=== PATIENT | male | born 1980 | race Caucasian/White ===

== ENCOUNTER 2017-11-26 10:17 | Observation (INO) | payer OTHER ==
[2017-11-26 10:20] VITALS: BMI 25.6
[2017-11-26] MEDS ORDERED: Iohexol 240 (50 ml) PO ONE (11:42)
[2017-11-26] MEDS ORDERED: HYDROmorphone 1 mg/ml ISec IVP STA (11:46)
[2017-11-26] MEDS ORDERED: Sodium Chloride 0.9% 1,000 ML IV STA (11:46)
--- NOTE | 2017-11-26 12:07 | ED PDOC ---
HPI: General Adult Time Seen by Provider: 11/26/17 10:49 Chief Complaint (Nursing): Abdominal Pain History Per: Patient Additional Complaint(s): Pt. states he has had RLQ abdominal pain since yesterday associated with multiple episodes of non-bloody vomiting. Pain has been constant. Also reports feeling febrile. Denies diarrhea, melena, hematemesis, hematochezia, BRBPR. Past Medical History Reviewed: Historical Data, Nursing Documentation, Vital Signs Vital Signs: Last Vital Signs Temp 98.2 F 11/26/17 16:30 Pulse 84 11/26/17 16:30 Resp 20 11/26/17 16:30 BP 137/91 H 11/26/17 16:30 Pulse Ox 97 11/26/17 15:32 - Family History Family History: States: No Known Family Hx - Immunization History Hx Tetanus Toxoid Vaccination: No Hx Influenza Vaccination: No Hx Pneumococcal Vaccination: No - Home Medications Home Medications: Ambulatory Orders Medication Instructions Recorded Cyanocobalamin [Vitamin B12 1000 1 tab PO DAILY 11/26/17 mcg Tab] - Allergies Allergies/Adverse Reactions: Allergies Allergy/AdvReac Type Severity Reaction Status Date / Time No Known Allergies Allergy Verified 11/26/17 15:34 Review of Systems ROS Statement: Except As Marked, All Systems Reviewed And Found Negative Constitutional: Positive for: Fever Gastrointestinal: Positive for: Nausea, Vomiting, Abdominal Pain Physical Exam - Physical Exam Appears: Positive for: Well, Non-toxic, No Acute Distress Skin: Positive for: Normal Color, Warm. Negative for: Rash Eye Exam: Positive for: Normal appearance Cardiovascular/Chest: Positive for: Regular Rate, Rhythm Respiratory: Positive for: CNT, Normal Breath Sounds Gastrointestinal/Abdominal: Positive for: Normal Exam, Soft, Tenderness ( moderate RLQ tenderness) Back: Positive for: Normal Inspection. Negative for: L CVA Tenderness, R CVA Tenderness Neurologic/Psych: Positive for: Alert, Oriented - Laboratory Results Result Diagrams: 11/26/17 12:12 11/26/17 12:12 - ECG O2 Sat by Pulse Oximetry: 97 - Progress ED Course And Treament: Labs ordered. CT abd/pelvis w/ IV and PO contrast ordered. Dilaudid 1mg IV, zofran 4mg IV ordered. Pt. NPO. 1355 On re-evaluation, pt. sleeping comfortably. Easily arousable. Reports good analgesia. 1439 CT abd/pelvis w/ PO and IV contrast: acute appendicitis 1450 Call placed to assembler surgical garment. 1455 Case d/w Dr. Weiss, assembler surgical garment, and arrangements made for admission. Case d/w Dr. Umanzor and arrangements made for admission. Disposition - Clinical Impression Clinical Impression: Acute appendicitis - Patient ED Disposition Is Patient to be Admitted: Yes - Disposition Disposition Time: 14:55 Condition: STABLE - Pt Status Changed To: Hospital Disposition Of: Observation
[2017-11-26] MEDS ORDERED: Iohexol 240 (50 ml) ONE (12:11)
[2017-11-26 12:19] LABS: BASO # 0.1 K/uL (0.0-0.2); BASO % 0.6 % (0.0-2.0); EOS # 0.2 K/uL (0.0-0.7); EOS % 2.4 % (0.0-4.0); HEMOGLOBIN 15.2 g/dL (12.0-18.0); LYMPH % 20.3 % (20.0-40.0); MEAN CELL VOLUME 89.1 fl (80.0-94.0); MEAN CORPUSCULAR HEMOGLOBIN 31.3 pg (27.0-31.0); MEAN CORPUSCULAR HGB CONC 35.2 g/dL (33.0-37.0); MEAN PLATELET VOLUME 7.5 fl (7.2-11.7); MONO # 0.9 K/uL (0.0-0.8); MONO % 9.3 % (0.0-10.0); NEUT # 6.8 K/uL (1.8-7.0); NEUT % 67.4 % (50.0-75.0); NRBC % 0.1 % (0.0-0.0); RBC 4.84 Mil/uL (4.40-5.90); RED CELL DISTRIBUTION WIDTH 12.4 % (11.5-14.5); WHITE BLOOD COUNT 10.1 K/uL (4.8-10.8)
[2017-11-26 12:37] LABS: ALB/GLOB RATIO 1.1 (1.0-2.1); ALBUMIN 4.3 g/dL (3.5-5.0); ALT/SGPT 61 U/L (21-72); AST/SGOT 37 U/L (17-59); BLOOD UREA NITROGEN 10 mg/dl (9-20); CALCIUM 9.4 mg/dL (8.4-10.2); GFR AFRICAN-AMERICAN > 60; GFR NON-AFRICAN AMERICAN > 60
[2017-11-26 13:03] LABS: URINE BILIRUBIN NEGATIVE (NEGATIVE); URINE BLOOD NEGATIVE (NEGATIVE); URINE CLARITY SLIGHTY-CLOUDY (Clear); URINE COLOR YELLOW (YELLOW); URINE GLUCOSE (UA) NEG (Normal); URINE LEUKOCYTE ESTERASE NEG Leu/uL (Negative); URINE NITRATE NEGATIVE (NEGATIVE); URINE PROTEIN NEGATIVE (NEGATIVE)
[2017-11-26] MEDS ORDERED: Iohexol 300 100 ML IJ ONE (14:11)
[2017-11-26] MEDS ORDERED: Sodium Chloride 0.9% 50 ML IV ONE (14:11)
--- NOTE | 2017-11-26 14:45 | CT ---
PROCEDURE: CT Abdomen and Pelvis with contrast HISTORY: RLQ abdominal pain, vomiting COMPARISON: None. TECHNIQUE: Contrast dose: 95 cc Omnipaque 300 Radiation dose: Total exam DLP = 454.32 mGy-cm. This CT exam was performed using one or more of the following dose reduction techniques: Automated exposure control, adjustment of the mA and/or kV according to patient size, and/or use of iterative reconstruction technique. FINDINGS: LOWER THORAX: Dependent atelectasis at the lung bases. LIVER: Hepatic steatosis. No focal masses. No intrahepatic bile duct dilatation or perihepatic ascites. GALLBLADDER AND BILE DUCTS: Unremarkable. PANCREAS: Unremarkable. No gross lesion or ductal dilatation. SPLEEN: Unremarkable. ADRENALS: Unremarkable. No mass. KIDNEYS AND URETERS: Unremarkable. No hydronephrosis. No solid mass. VASCULATURE: Unremarkable. No aortic aneurysm. BOWEL: Diverticulosis without an acute inflammatory component or other associated pathologic process. APPENDIX: Acute appendicitis with right lower quadrant. Appendiceal inflammatory changes. No fluid collection, free air, loculated air identified. PERITONEUM: Unremarkable. No free fluid. No free air. LYMPH NODES: Unremarkable. No enlarged lymph nodes. BLADDER: Unremarkable. REPRODUCTIVE: Unremarkable. BONES: No acute fracture. OTHER FINDINGS: None. IMPRESSION: Acute appendicitis. No evidence of loculated air, free air, drainable collection. Communication of results: Study completed 14:25 I discussed findings with physician physical laboratory assistant at the time of this interpretation 14:39 2017.
[2017-11-26] MEDS ORDERED: Piperacillin/Tazobact 3.375 GM in Sodium Chloride 0.9% 100 ML IVPB STA (15:05)
[2017-11-26] MEDS ORDERED: Sodium Chloride 0.9% 1,000 ML IV SCH (15:15)
[2017-11-26] MEDS ORDERED: Piperacillin/Tazobact 3.375 gm Inj IVPB ONE (15:33)
[2017-11-26 16:11] LABS: VENOUS BLOOD GAS BASE EXCESS -0.4 mmol/L (0.0-2.0); VENOUS BLOOD GAS PCO2 42 mmHg (40-60); VENOUS BLOOD GAS PO2 53 mm/Hg (30-55); VENOUS BLOOD PH 7.38 (7.32-7.43)
--- NOTE | 2017-11-26 16:11 | CP.PCM.CON ---
History of Present Illness - History of Present Illness History of Present Illness: General surgery consult note for Dr. Ellie Weiss, PGY-1 Pt S & E at bedside. [place] speaking only, translation via [email or web address] 37M w/no sig PMH consulted for RLQ ab pain x 2 days. Pt reports onset of periumbilical abdominal pain 2 days prior to evaluation, with localization to RLQ. Pain is severe, sharp, constant, non radiating. Admits to poor appetite, emesis x 3 (nbnb, food stuff), nausea, fevers (subjective), chills, cramps of legs, numbness of Right foot. Denies constipation, diarrhea, chest pain, palpitations, SOB, weakness. Last meal- yesterday lunch PMH: Denies PSH: Left hand & left foot surgery All: NKDA SH: Admits to weekly ETOH use, averages 2 beers/hard liquor; hx of tobacco use ( quit 2010), denies drugs Review of Systems - Review of Systems All systems: reviewed and no additional remarkable complaints except - Constitutional Constitutional: Chills, Fever (subjective). absent: Increased Appetite, Weakness - EENT Nose/Mouth/Throat: absent: Sore Throat - Cardiovascular Cardiovascular: absent: Chest Pain - Respiratory Respiratory: absent: Cough - Gastrointestinal Gastrointestinal: Abdominal Pain, Nausea, Vomiting. absent: Change in Bowel Habits, Constipation, Diarrhea, Hematemesis - Genitourinary Genitourinary: absent: Change in Urinary Stream - Musculoskeletal Musculoskeletal: Numbness, Tingling. absent: Muscle Weakness - Integumentary Integumentary: absent: Rash - Neurological Neurological: absent: Weakness - Psychiatric Psychiatric: Change in Appetite (decreased) Past Patient History - Past Social History Smoking Status: Never Smoked - PSYCHIATRIC Hx Substance Use: No - SURGICAL HISTORY Hx Surgeries: No - ANESTHESIA Hx Anesthesia: No Meds Allergies/Adverse Reactions: Allergies Allergy/AdvReac Type Severity Reaction Status Date / Time No Known Allergies Allergy Verified 11/26/17 15:34 - Medications Medications: Current Medications Hydromorphone HCl (Dilaudid) 1 mg IVP Q4 PRN PRN Reason: Pain, severe (8-10) Hydromorphone HCl (Dilaudid) 0.5 mg IVP Q4H PRN PRN Reason: Pain, moderate (4-7) Sodium Chloride (Sodium Chloride 0.9%) 1,000 mls @ 100 mls/hr IV .Q10H KANG Ciprofloxacin (Cipro 400mg/200ml Dsw) 400 mg in 200 mls @ 200 mls/hr IVPB Q12 KANG PRN Reason: Protocol Metronidazole (Flagyl 500mg/100ml Ns) 100 mls @ 100 mls/hr IVPB Q12 KANG PRN Reason: Protocol Ondansetron HCl (Zofran Inj) 4 mg IVP Q6 PRN PRN Reason: Nausea/Vomiting Physical Exam - Constitutional Appears: Non-toxic, No Acute Distress - Head Exam Head Exam: ATRAUMATIC, NORMAL INSPECTION, NORMOCEPHALIC - Eye Exam Eye Exam: EOMI, Normal appearance - ENT Exam ENT Exam: Mucous Membranes Moist, Normal Exam - Neck Exam Neck exam: Positive for: Full Rom, Normal Inspection - Respiratory Exam Respiratory Exam: NORMAL BREATHING PATTERN - Cardiovascular Exam Cardiovascular Exam: REGULAR RHYTHM, +S1, +S2 - GI/Abdominal Exam GI & Abdominal Exam: Guarding, Tenderness (RLQ, + McBurney's, -Rovsings, +psoas) . absent: Distended, Firm - Extremities Exam Extremities exam: Positive for: normal inspection - Neurological Exam Neurological exam: Alert, CN II-XII Intact, Oriented x3 - Psychiatric Exam Psychiatric exam: Normal Affect, Normal Mood - Skin Skin Exam: Diaphoretic, Intact, Normal Color, Warm Results - Vital Signs Recent Vital Signs: Last Vital Signs Temp 98.2 F 11/26/17 10:21 Pulse 84 11/26/17 10:21 Resp 20 11/26/17 10:21 BP 137/91 H 11/26/17 10:21 Pulse Ox 97 11/26/17 15:32 - Labs Result Diagrams: 11/26/17 12:12 11/26/17 12:12 Labs: Laboratory Results - last 24 hr 11/26/17 11/26/17 11/26/17 12:12 12:12 12:15 WBC 10.1 RBC 4.84 Hgb 15.2 Hct 43.1 MCV 89.1 D MCH 31.3 H MCHC 35.2 RDW 12.4 Plt Count 202 MPV 7.5 Neut % (Auto) 67.4 Lymph % (Auto) 20.3 [place] % (Auto) 9.3 Eos % (Auto) 2.4 Baso % (Auto) 0.6 Neut # 6.8 Lymph # 2.0 [place] # 0.9 H Eos # 0.2 Baso # 0.1 Sodium 139 Potassium 3.5 L Chloride 98 Carbon Dioxide 27 Anion Gap 18 BUN 10 Creatinine 0.7 L Est GFR ( Amer) > 60 Est GFR (Non-Af Amer) > 60 Random Glucose 94 Calcium 9.4 Total Bilirubin 1.0 AST 37 ALT 61 Alkaline Phosphatase 101 Total Protein 8.3 H Albumin 4.3 Globulin 4.0 H Albumin/Globulin Ratio 1.1 Urine Color Yellow Urine Clarity Slighty-cloudy Urine pH 6.0 Ur Specific [place] 1.019 Urine Protein Negative Urine Glucose (UA) Neg Urine Ketones 20 Urine Blood Negative Urine Nitrate Negative Urine Bilirubin Negative Urine Urobilinogen 2.0 Ur Leukocyte Esterase Neg Urine RBC (Auto) 2 Urine Microscopic WBC 3 Assessment & Plan - Assessment and Plan (Free Text) Assessment: 37M with no sig PMH consulted for abdominal pain due to appendicitis Plan: Admit to medicine NPO IVF Abx Serial ab exam Consent in chart Plan for OR today DW attending Isela, PGY-1 - Date & Time Date: 11/26/17 Time: 16:11
[2017-11-26] MEDS ORDERED: Lidocaine 4% (Laryng-O-Jet) Kit MM ONE (16:36)
[2017-11-26] MEDS ORDERED: Propofol 10 mg/ml Inj (20 ML) ONE (16:36)
[2017-11-26] MEDS ORDERED: Rocuronium 10 mg/ml (5 ml) ONE (16:36)
[2017-11-26] MEDS ORDERED: Succinylcholine 200 mg/10 ml Inj IV ONE (16:36)
[2017-11-26] MEDS ORDERED: Dexamethasone 4 mg/1 ml ONE (16:38)
[2017-11-26] MEDS ORDERED: Lidocaine 1% Inj (20ml) ONE (16:55)
[2017-11-26] MEDS ORDERED: Bupivacaine 0.5% Inj(30mL) ONE (16:55)
[2017-11-26] MEDS ORDERED: Sodium Chloride 0.9% 1,000 ML IV ONE ×2 (17:28)
[2017-11-26] MEDS ORDERED: Midazolam 2 MG/2 ML VIAL ONE (17:31)
[2017-11-26] MEDS ORDERED: Neostigmine Methylsulfate 3mg/3ml Syringe IV ONE (17:50)
[2017-11-26] MEDS ORDERED: Lactated Ringer's 1,000 ML IV ONE ×2 (18:00→19:50)
[2017-11-26] MEDS ORDERED: Lactated Ringer's 1,000 ML IV SCH (18:45)
--- NOTE | 2017-11-26 18:48 | PCM.SURG1 ---
Surgeon's Initial Post Op Note - Surgeon's Notes Surgeon: Joey Bedoya MD Time Clerk: Liz Weiss PGY-1 Type of Anesthesia: General Endo Pre-Operative Diagnosis: Acute appendicitis Operative Findings: See op report Post-Operative Diagnosis: Acute appendicitis Operation Performed: Laparoscopic appendectomy Specimen/Specimens Removed: Appendix Estimated Blood Loss: EBL {In ML}: 5 Blood Products Given: N/A Drains Used: No Drains Post-Op Condition: Good Date of Surgery/Procedure: 11/26/17 Time of Surgery/Procedure: 18:48
[2017-11-26] MEDS ORDERED: Oxycodone/Acetaminophen 5/325 mg Tab PO PRN ×2 (18:49)
[2017-11-26] MEDS ORDERED: Ciprofloxacin 400mg/200ml D5W 400 MG/200 ML BAG IVPB SCH (21:00)
[2017-11-26] MEDS ORDERED: metroNIDAZOLE 500mg/100ml NS 100 ML IVPB SCH (21:00)
--- NOTE | 2017-11-26 22:39 | CP.PCM.HP ---
History of Present Illness - History of Present Illness History of Present Illness: This is a 37 year old male with no significant past medical history who presented to the ED with the complaint of right lower quadrant going on for 2 days. The patient reported intiially having generalized abdominal pain when then localized to the RLQ. Associated symptoms include decreased po intake, nonbilious nonbloody emesis x 3 yesterday associated with nausea, chills. Patient denies headache, chest pain, sob, weakness, constipation. In the ED, the patient had CT scan showing acute appendicitis. No fever or leukocytosis. The patient was taken to the OR today with Dr. Bedoya and had uncomplicated laparascopic appendectomy. Present on Admission - Present on Admission Any Indicators Present on Admission: No Review of Systems - Review of Systems Review of Systems: A 12 point review of systems was conducted and found to be negative other than what was dictated in HPI. Past Patient History - Past Medical History & Family History Past Medical History?: No - Past Social History Smoking Status: Never Smoked - CARDIAC Hx Cardiac Disorders: No - PULMONARY Hx Respiratory Disorders: No - NEUROLOGICAL Hx Neurological Disorder: No - HEENT Hx HEENT Problems: No - RENAL Hx Chronic Kidney Disease: No - ENDOCRINE/METABOLIC Hx Endocrine Disorders: No - HEMATOLOGICAL/ONCOLOGICAL Hx Blood Disorders: No - INTEGUMENTARY Hx Dermatological Problems: No - MUSCULOSKELETAL/RHEUMATOLOGICAL Hx Musculoskeletal Disorders: No - GENITOURINARY/GYNECOLOGICAL Hx Genitourinary Disorders: No - PSYCHIATRIC Hx Substance Use: No - SURGICAL HISTORY Hx Surgeries: No - ANESTHESIA Hx Anesthesia: No Meds Allergies/Adverse Reactions: Allergies Allergy/AdvReac Type Severity Reaction Status Date / Time No Known Allergies Allergy Verified 11/26/17 15:34 Physical Exam - Additional Findings Additional findings: Physical exam: Constitutional- cooperative, awake, alert Head- NCAT, PERRL Eye- PERRL, EOMI ENT- normal exam, MMM. Neck- normal inspection, supple, no JVD Respiratory- CTAB, no wheezes rales rhonchi Cardiovascular- RRR, +S1, +S2 no MRG GI/Abdominal- normal bowel sounds, soft, no mass, no hsm Skin- warm, dry Extremities Exam- normal capillary refill, normal inspection Neurological Exam- alert, awake, oriented Psych- normal mood, normal affect Results - Vital Signs Recent Vital Signs: Last Vital Signs Temp 98.4 F 11/26/17 20:29 Pulse 78 11/26/17 20:29 Resp 20 11/26/17 20:29 BP 123/75 11/26/17 20:29 Pulse Ox 95 11/26/17 20:29 - Labs Result Diagrams: 11/26/17 12:12 11/26/17 12:12 Labs: Laboratory Results - last 24 hr 11/26/17 11/26/17 11/26/17 12:12 12:12 12:15 WBC 10.1 RBC 4.84 Hgb 15.2 Hct 43.1 MCV 89.1 D MCH 31.3 H MCHC 35.2 RDW 12.4 Plt Count 202 MPV 7.5 Neut % (Auto) 67.4 Lymph % (Auto) 20.3 [place] % (Auto) 9.3 Eos % (Auto) 2.4 Baso % (Auto) 0.6 Neut # 6.8 Lymph # 2.0 [place] # 0.9 H Eos # 0.2 Baso # 0.1 pO2 VBG pH VBG pCO2 VBG HCO3 VBG Total CO2 VBG O2 Sat (Calc) VBG Base Excess VBG Potassium Glucose Lactate FiO2 Sodium 139 Potassium 3.5 L Chloride 98 Carbon Dioxide 27 Anion Gap 18 BUN 10 Creatinine 0.7 L Est GFR ( Amer) > 60 Est GFR (Non-Af Amer) > 60 Random Glucose 94 Calcium 9.4 Total Bilirubin 1.0 AST 37 ALT 61 Alkaline Phosphatase 101 Total Protein 8.3 H Albumin 4.3 Globulin 4.0 H Albumin/Globulin Ratio 1.1 Venous Blood Potassium Urine Color Yellow Urine Clarity Slighty-cloudy Urine pH 6.0 Ur Specific [place] 1.019 Urine Protein Negative Urine Glucose (UA) Neg Urine Ketones 20 Urine Blood Negative Urine Nitrate Negative Urine Bilirubin Negative Urine Urobilinogen 2.0 Ur Leukocyte Esterase Neg Urine RBC (Auto) 2 Urine Microscopic WBC 3 11/26/17 16:00 WBC RBC Hgb Hct MCV MCH MCHC RDW Plt Count MPV Neut % (Auto) Lymph % (Auto) [place] % (Auto) Eos % (Auto) Baso % (Auto) Neut # Lymph # [place] # Eos # Baso # pO2 53 VBG pH 7.38 VBG pCO2 42 VBG HCO3 24.3 VBG Total CO2 26.1 VBG O2 Sat (Calc) 92.4 H VBG Base Excess -0.4 L VBG Potassium 3.6 Glucose 89 Lactate 0.9 FiO2 21.0 Sodium 134.0 Potassium Chloride 98.0 Carbon Dioxide Anion Gap BUN Creatinine Est GFR ( Amer) Est GFR (Non-Af Amer) Random Glucose Calcium Total Bilirubin AST ALT Alkaline Phosphatase Total Protein Albumin Globulin Albumin/Globulin Ratio Venous Blood Potassium 3.6 Urine Color Urine Clarity Urine pH Ur Specific [place] Urine Protein Urine Glucose (UA) Urine Ketones Urine Blood Urine Nitrate Urine Bilirubin Urine Urobilinogen Ur Leukocyte Esterase Urine RBC (Auto) Urine Microscopic WBC Assessment & Plan - Assessment and Plan (Free Text) Plan: Assessment 1) Acute appendicitis, s/p laparascopic appendectomy POD #0 - Place on med/surg obs s/p surgery - Dr. Bedoya on consultation - Check CBC in AM - Zofran 4 mg ivp q 6 hours - Cipro/Flagyl 2) DVT prophylaxis - SCDs Dispo: Likely discharge in AM
[2017-11-27 00:20] VITALS: RESP 18; O2SAT 97
[2017-11-27 08:10] LABS: HEMOGLOBIN 13.4 g/dL (12.0-18.0); MEAN CELL VOLUME 89.5 fl (80.0-94.0); MEAN CORPUSCULAR HEMOGLOBIN 31.7 pg (27.0-31.0); MEAN CORPUSCULAR HGB CONC 35.4 g/dL (33.0-37.0); RBC 4.24 Mil/uL (4.40-5.90); RED CELL DISTRIBUTION WIDTH 12.1 % (11.5-14.5); WHITE BLOOD COUNT 7.6 K/uL (4.8-10.8)
--- NOTE | 2017-11-27 08:21 | CP.PCM.DIS ---
Provider - Provider Date of Admission: 11/26/17 15:04 Attending physician: Tyler Umanzor DO Primary care physician: None Consults: surgery consult Time Spent in preparation of Discharge (in minutes): 15 Hospital Course - Lab Results Lab Results: Most Recent Lab Values WBC 7.6 K/uL (4.8-10.8) 11/27/17 07:30 RBC 4.24 Mil/uL (4.40-5.90) L 11/27/17 07:30 Hgb 13.4 g/dL (12.0-18.0) 11/27/17 07:30 Hct 37.9 % (35.0-51.0) 11/27/17 07:30 MCV 89.5 fl (80.0-94.0) 11/27/17 07:30 MCH 31.7 pg (27.0-31.0) H 11/27/17 07:30 MCHC 35.4 g/dL (33.0-37.0) 11/27/17 07:30 RDW 12.1 % (11.5-14.5) 11/27/17 07:30 Plt Count 203 K/uL (130-400) 11/27/17 07:30 MPV 7.5 fl (7.2-11.7) 11/26/17 12:12 Neut % (Auto) 67.4 % (50.0-75.0) 11/26/17 12:12 Lymph % (Auto) 20.3 % (20.0-40.0) 11/26/17 12:12 [place] % (Auto) 9.3 % (0.0-10.0) 11/26/17 12:12 Eos % (Auto) 2.4 % (0.0-4.0) 11/26/17 12:12 Baso % (Auto) 0.6 % (0.0-2.0) 11/26/17 12:12 Neut # 6.8 K/uL (1.8-7.0) 11/26/17 12:12 Lymph # 2.0 K/uL (1.0-4.3) 11/26/17 12:12 [place] # 0.9 K/uL (0.0-0.8) H 11/26/17 12:12 Eos # 0.2 K/uL (0.0-0.7) 11/26/17 12:12 Baso # 0.1 K/uL (0.0-0.2) 11/26/17 12:12 pO2 53 mm/Hg (30-55) 11/26/17 16:00 VBG pH 7.38 (7.32-7.43) 11/26/17 16:00 VBG pCO2 42 mmHg (40-60) 11/26/17 16:00 VBG HCO3 24.3 mmol/L 11/26/17 16:00 VBG Total CO2 26.1 mmol/L (22-28) 11/26/17 16:00 VBG O2 Sat (Calc) 92.4 % (40-65) H 11/26/17 16:00 VBG Base Excess -0.4 mmol/L (0.0-2.0) L 11/26/17 16:00 VBG Potassium 3.6 mmol/L (3.6-5.2) 11/26/17 16:00 Sodium 134.0 mmol/L (132-148) 11/26/17 16:00 Chloride 98.0 mmol/L (98-107) 11/26/17 16:00 Glucose 89 mg/dL (75-110) 11/26/17 16:00 Lactate 0.9 mmol/L (0.7-2.1) 11/26/17 16:00 FiO2 21.0 % 11/26/17 16:00 Sodium 139 mmol/l (132-148) 11/26/17 12:12 Potassium 3.5 MMOL/L (3.6-5.0) L 11/26/17 12:12 Chloride 98 mmol/L (98-107) 11/26/17 12:12 Carbon Dioxide 27 mmol/L (22-30) 11/26/17 12:12 Anion Gap 18 (10-20) 11/26/17 12:12 BUN 10 mg/dl (9-20) 11/26/17 12:12 Creatinine 0.7 mg/dl (0.8-1.5) L 11/26/17 12:12 Est GFR ( Amer) > 60 11/26/17 12:12 Est GFR (Non-Af Amer) > 60 11/26/17 12:12 Random Glucose 94 mg/dL (75-110) 11/26/17 12:12 Calcium 9.4 mg/dL (8.4-10.2) 11/26/17 12:12 Total Bilirubin 1.0 mg/dl (0.2-1.3) 11/26/17 12:12 AST 37 U/L (17-59) 11/26/17 12:12 ALT 61 U/L (21-72) 11/26/17 12:12 Alkaline Phosphatase 101 U/L (38-126) 11/26/17 12:12 Total Protein 8.3 G/DL (6.3-8.2) H 11/26/17 12:12 Albumin 4.3 g/dL (3.5-5.0) 11/26/17 12:12 Globulin 4.0 gm/dL (2.2-3.9) H 11/26/17 12:12 Albumin/Globulin Ratio 1.1 (1.0-2.1) 11/26/17 12:12 Venous Blood Potassium 3.6 mmol/L (3.6-5.2) 11/26/17 16:00 Urine Color Yellow (YELLOW) 11/26/17 12:15 Urine Clarity Slighty-cloudy (Clear) 11/26/17 12:15 Urine pH 6.0 (5.0-8.0) 11/26/17 12:15 Ur Specific [place] 1.019 (1.003-1.030) 11/26/17 12:15 Urine Protein Negative mg/dL (NEGATIVE) 11/26/17 12:15 Urine Glucose (UA) Neg mg/dL (Normal) 11/26/17 12:15 Urine Ketones 20 mg/dL (NEGATIVE) 11/26/17 12:15 Urine Blood Negative (NEGATIVE) 11/26/17 12:15 Urine Nitrate Negative (NEGATIVE) 11/26/17 12:15 Urine Bilirubin Negative (NEGATIVE) 11/26/17 12:15 Urine Urobilinogen 2.0 mg/dL (0.2-1.0) 11/26/17 12:15 Ur Leukocyte Esterase Neg [place]/uL (Negative) 11/26/17 12:15 Urine RBC (Auto) 2 /hpf (0-3) 11/26/17 12:15 Urine Microscopic WBC 3 /hpf (0-5) 11/26/17 12:15 - Hospital Course Hospital Course: 37 year old male with no significant past medical history presented to the ED with the complaint of right lower quadrant going on for 2 days. Patient reported initially having generalized abdominal pain when then localized to the RLQ. Associated symptoms include decreased po intake, nonbilious nonbloody emesis x 3 yesterday associated with nausea, chills. In the ER abdominal CT showed acute not perforated appendicitis. No fever or leukocytosis. The patient was taken to the OR with Dr. Bedoya and had uncomplicated laparascopic appendectomy. He was given IVF, Cipro and Flagyl IV, pain medicatiosn. Post op patient doing well, tolerating PO intake, passing flatus, denies any chest pain, SOB, nause aor vomiting, voiding freely. Patient is hemodynamically stable, afebrile Cleared for discharge by surgery. Will d/c home on Percoset PRN fpr pain , Colace stool softener and Augmentin Po for 7 days Advised patient to follow p with [facility] and Dr Jackson in 1 week Counselled patient to avoid driving , heavy machinery use while taking percoset since it may cause drowsiness and confusion Given instructions about post lap appendectomy DX Acute non perforated appendicitis s/p laparascopic appendectomy Discharge Exam - Head Exam Head Exam: ATRAUMATIC, NORMAL INSPECTION, NORMOCEPHALIC - Eye Exam Eye Exam: EOMI, Normal appearance, PERRL Pupil Exam: NORMAL ACCOMODATION - ENT Exam ENT Exam: Mucous Membranes Moist, Normal Exam - Neck Exam Neck exam: Full Rom, Normal Inspection - Respiratory Exam Respiratory Exam: Clear to PA & Lateral, NORMAL BREATHING PATTERN. absent: Rales, Rhonchi, Wheezes - Cardiovascular Exam Cardiovascular Exam: REGULAR RHYTHM, RRR, +S1, +S2. absent: JVD - GI/Abdominal Exam GI & Abdominal Exam: Normal Bowel Sounds, Soft, Tenderness (RLQ). absent: Distended, Guarding, Rebound - Rectal Exam Rectal Exam: Deferred - Extremities Exam Extremities exam: normal capillary refill, normal inspection, pedal pulses present - Back Exam Back exam: NORMAL INSPECTION - Neurological Exam Neurological exam: Alert, CN II-XII Intact, Oriented x3, Reflexes Normal - Psychiatric Exam Psychiatric exam: Normal Affect, Normal Mood - Skin Skin Exam: Dry, Intact, Normal Color, Warm Discharge Plan - Discharge Medications Prescriptions: Amoxicillin/Clavulanate [Augmentin 875 MG-125 MG] 1 tab PO Q12 #14 tab Docusate [Colace] 100 mg PO BID #14 cap oxyCODONE/Acetaminophen [Percocet 5/325 mg Tab] 1 tab PO Q6 PRN #20 tab PRN Reason: Pain, Severe (8-10) - Follow Up Plan Condition: STABLE Disposition: HOME/ ROUTINE Patient education suggested?: Yes Instructions: Appendicitis (DC), Laparoscopic Appendectomy (DC) Additional Instructions: You may remove the large bandaids tomorrow. Do not shower until the bandaids are removed. Under the bandaids there is special glue over the surgical incision sites. You may shower, washing the glue gently with soap and water. Do not sit in a bath tub or hot tub. You may resume a normal diet. Ok to take pain medications as needed, if you had a narcotic, please do not operate heavy machinery. If you take the opiate for a long time, it may cause constipation, be sure and take a stool softener with it if you take it for more than 3 days. No heavy lifting for 4-6 weeks or until cleared by Dr. Bedoya. If you have fevers, chills or if you have a recurrence of abdominal pain, please return to the hospital. Please make an appointment to follow up with Dr. Bedoya in 1-2 weeks after you leave the hospital- there is no extra charge for this visit. Referrals: Joey Bedoya MD [Staff Provider] -
[2017-11-27 08:46] VITALS: BP 114/60; PULSE 62; TEMP 98.8
[2017-11-27] MEDS ORDERED: metroNIDAZOLE 500mg/100ml NS 100 ML IVPB SCH (09:00)
[2017-11-27] MEDS ORDERED: Ciprofloxacin 400mg/200ml D5W 400 MG/200 ML BAG IVPB SCH (09:00)
--- NOTE | 2017-11-27 11:40 | CP.PCM.PN ---
Subjective - Date & Time of Evaluation Date of Evaluation: 11/27/17 Time of Evaluation: 11:00 - Subjective Subjective: General surgery progress note for Dr. Ellie Weiss, PGY-1 Pt S & E at bedside. Pt reports ab pain is well controlled, no problems overnight, eating ok, voiding ok. Objective - Vital Signs/Intake and Output Vital Signs (last 24 hours): Temp Pulse Resp BP Pulse Ox 98.8 F 62 18 114/60 97 11/27/17 08:20 11/27/17 08:20 11/27/17 08:20 11/27/17 08:20 11/27/17 08:20 Intake and Output: 11/27/17 11/27/17 06:59 18:59 Intake Total 1640 Output Total 900 Balance 740 - Medications Medications: Current Medications Ciprofloxacin (Cipro 400mg/200ml Dsw) 400 mg in 200 mls @ 200 mls/hr IVPB Q12 KANG PRN Reason: Protocol Last Admin: 11/26/17 23:00 Dose: 200 mls/hr Metronidazole (Flagyl 500mg/100ml Ns) 100 mls @ 100 mls/hr IVPB Q12 KANG PRN Reason: Protocol Last Admin: 11/26/17 21:51 Dose: 100 mls/hr Lactated Ringer's (Lactated Ringer's) 1,000 mls @ 100 mls/hr IV .Q10H KANG Ondansetron HCl (Zofran Inj) 4 mg IVP Q6 PRN PRN Reason: Nausea/Vomiting Oxycodone/Acetaminophen (Percocet 5/325 Mg Tab) 1 tab PO Q4 PRN PRN Reason: Pain, moderate (4-7) Stop: 11/29/17 18:50 Oxycodone/Acetaminophen (Percocet 5/325 Mg Tab) 2 tab PO Q4 PRN PRN Reason: Pain, severe (8-10) Stop: 11/29/17 18:50 Last Admin: 11/27/17 08:19 Dose: 2 tab - Labs Labs: 11/27/17 07:30 11/26/17 12:12 - Constitutional Appears: Non-toxic, No Acute Distress - Head Exam Head Exam: ATRAUMATIC, NORMAL INSPECTION, NORMOCEPHALIC - Eye Exam Eye Exam: EOMI, Normal appearance - ENT Exam ENT Exam: Mucous Membranes Moist, Normal Exam - Neck Exam Neck Exam: Full ROM, Normal Inspection - Respiratory Exam Respiratory Exam: NORMAL BREATHING PATTERN - Cardiovascular Exam Cardiovascular Exam: REGULAR RHYTHM, +S1, +S2 - GI/Abdominal Exam GI & Abdominal Exam: Soft, Tenderness (around surgical sites- bandaids clean/dry /intact). absent: Distended, Firm, Guarding, Rigid, Rebound - Extremities Exam Extremities Exam: Normal Inspection - Neurological Exam Neurological Exam: Alert, Awake, CN II-XII Intact, Oriented x3 - Psychiatric Exam Psychiatric exam: Normal Affect, Normal Mood - Skin Skin Exam: Dry, Intact, Normal Color, Warm Assessment and Plan - Assessment and Plan (Free Text) Assessment: 37M POD#1 s/p laparoscopic appendectomy Plan: Pt stable and cleared for discharge home from surgical standpoint Follow up with Dr. Bedoya in the office in 1-2 weeks Ok to shower tomorrow Ok to remove bandaids from surgical sites tomorrow No heavy lifting for 4-6 weeks or until cleared by Dr. Aureliano FLYNN attending [place], PGY-1
== END 2017-11-27 12:10 | disposition home or self-care (01) ==
LOC: H.ER 10:17 → H.ERHOLD 15:04 → H.PEDS 20:18
PROVIDERS: ADMIT Internal Medicine; ATTEND Internal Medicine
DX: K35.80 Unspecified acute appendicitis (principal)
CPT/HCPCS: 36415; 44970; 74177; 80053; 81003; 82803; 85025; 85027; 87040; 88304; 96361; 96374; 96375; 99284; G0378; J0330; J0744; J1100; J1170; J1885; J2001; J2250; J2405; J2543; J2704; J2710; J2765; J3010; J7030; J7040; J7120; Q9966; Q9967